=== PATIENT | male | born 1960 | race Caucasian/White ===

== ENCOUNTER 2019-12-12 08:00 | Outpatient (RCR) | payer OTHER ==
--- NOTE | 2019-11-14 10:30 | NUR ---
Patient in the [place]. according to the patient, PICC was placed at [facility]. PICC intact right upper arm with sterile dressing change done with insertion site cleansed with chloraprep x 1, chlorhexidine impregnated disk applied, skin prep, stat lock, and tegaderm applied. dressing was dated 11/10/2019 with no chlorhexidine impregnated disk. no signs or symptoms of IV complications noted. no concerns voiced. re-wrapped with tabby to protect catheter.
[2019-11-14 10:51] VITALS: BP 125/74; PULSE 87; TEMP 97.7
[2019-11-14 11:29] LABS: MEAN CELL VOLUME 93 fl (80.0-100.0); MEAN CORPUSCULAR HGB CONC 31 g/dl (33.0-37.0); PLATELET COUNT 250 K/mm3 (130-400); RED BLOOD COUNT 3.04 M/mm3 (4.20-5.60); REDCELL DISTRIBUTION WIDTH-CV 18.7 % (11.5-14.5)
[2019-11-14 11:30] LABS: HEMATOCRIT 28.3 % (42.0-52.0); HEMOGLOBIN 8.7 g/dl (13.5-18.0); MEAN CORPUSCULAR HEMOGLOBIN 29 pg (27.0-31.0)
[2019-11-14 11:52] LABS: ALBUMIN 2.8 gm/dL (3.5-5.0); BILIRUBIN,TOTAL 0.8 mg/dL (0.0-1.0); C-REACTIVE PROTEIN 4.1 mg/dL (0.0-0.9); CALCIUM 8.2 mg/dL (8.4-10.2); CREATININE, serum 1.01 (0.66-1.25); POTASSIUM 3.9 mmol/L (3.4-5.0); TOTAL PROTEIN 6.2 gm/dL (6.4-8.2)
[2019-11-15 09:57] VITALS: BP 126/73; PULSE 88; TEMP 97.9
[2019-11-16 08:18] VITALS: BP 115/72; PULSE 86; TEMP 97.4
[2019-11-17 08:24] VITALS: BP 117/68; PULSE 82; TEMP 97.9
[2019-11-18 08:17] VITALS: BP 121/80; PULSE 83; TEMP 98
[2019-11-19 08:23] VITALS: BP 120/74; PULSE 81; TEMP 97.4
[2019-11-20 08:09] VITALS: BP 123/81; PULSE 81; TEMP 98.4
[2019-11-20 08:21] LABS: MEAN CELL VOLUME 93 fl (80.0-100.0); MEAN CORPUSCULAR HGB CONC 30 g/dl (33.0-37.0); MEAN PLATELET VOLUME 8.2 fl (7.4-10.4); PLATELET COUNT 233 K/mm3 (130-400)
[2019-11-20 08:23] LABS: HEMATOCRIT 29.7 % (42.0-52.0); MEAN CORPUSCULAR HEMOGLOBIN 28 pg (27.0-31.0)
[2019-11-20 08:34] LABS: BILIRUBIN,TOTAL 0.6 mg/dL (0.0-1.0); C-REACTIVE PROTEIN 4.4 mg/dL (0.0-0.9); CALCIUM 8.1 mg/dL (8.4-10.2); CREATININE, serum 0.9 (0.66-1.25); TOTAL PROTEIN 6.5 gm/dL (6.4-8.2)
[2019-11-21 08:12] VITALS: BP 112/70; PULSE 73; TEMP 97.4
--- NOTE | 2019-11-21 08:20 | NUR ---
PICC intact right upper arm with sterile dressing change done with insertion site cleansed with chloraprep x 1, chlorhexidine impregnated disk applied, skin prep, stat lock, and tegaderm applied. no signs or symptoms of IV complications noted. no concerns voiced. to continue with cares in EU. voiced undersanding of instructions.
[2019-11-22 08:26] VITALS: BP 123/81; PULSE 80; TEMP 97.6
[2019-11-23 08:20] VITALS: BP 122/79; PULSE 78; TEMP 97.5
[2019-11-24 08:24] VITALS: BP 110/75; PULSE 75; TEMP 97.7
[2019-11-25 08:20] VITALS: BP 117/77; PULSE 74; TEMP 97.4
[2019-11-26 08:30] VITALS: BP 136/82; PULSE 75; TEMP 97.9
[2019-11-27 08:31] VITALS: BP 117/82; PULSE 81; TEMP 97.6
[2019-11-27 08:39] LABS: MEAN CELL VOLUME 90 fl (80.0-100.0); MEAN CORPUSCULAR HGB CONC 31 g/dl (33.0-37.0); MEAN PLATELET VOLUME 8.8 fl (7.4-10.4); PLATELET COUNT 301 K/mm3 (130-400); RED BLOOD COUNT 3.55 M/mm3 (4.20-5.60); REDCELL DISTRIBUTION WIDTH-CV 17.4 % (11.5-14.5)
[2019-11-27 08:41] LABS: HEMATOCRIT 31.8 % (42.0-52.0); HEMOGLOBIN 9.7 g/dl (13.5-18.0); MEAN CORPUSCULAR HEMOGLOBIN 27 pg (27.0-31.0)
[2019-11-27 08:43] LABS: ALBUMIN 3.3 gm/dL (3.5-5.0); BILIRUBIN,TOTAL 0.6 mg/dL (0.0-1.0); CALCIUM 8.8 mg/dL (8.4-10.2); CREATININE, serum 0.82 (0.66-1.25); TOTAL PROTEIN 7.1 gm/dL (6.4-8.2)
[2019-11-28 08:23] VITALS: BP 122/84; PULSE 78; TEMP 97.8
--- NOTE | 2019-11-28 08:30 | NUR ---
PICC intact right upper arm. With sterile technique right upper arm PICC dressing change done with insertion site cleansed with ChloraPrep 1, chlorhexidine impregnated disc applied, skin prep, StatLock, and Tegaderm applied. No signs or symptoms of IV complications noted. No concerns voiced. Arm wrapped with Jewel to protect catheter.
[2019-11-29 08:11] VITALS: BP 124/81; PULSE 78; TEMP 97.4
[2019-11-30 08:12] VITALS: BP 131/84; PULSE 81; TEMP 97.7
[2019-12-01 08:23] VITALS: BP 111/69; PULSE 83; TEMP 98
[2019-12-02 08:50] VITALS: BP 126/84; PULSE 78; TEMP 98.3
[2019-12-03 08:10] VITALS: BP 135/91; PULSE 75; TEMP 97.4
[2019-12-04 08:15] LABS: HEMOGLOBIN 10.2 g/dl (13.5-18.0); MEAN CELL VOLUME 89 fl (80.0-100.0); MEAN CORPUSCULAR HEMOGLOBIN 28 pg (27.0-31.0); MEAN CORPUSCULAR HGB CONC 31 g/dl (33.0-37.0); MEAN PLATELET VOLUME 8.4 fl (7.4-10.4); PLATELET COUNT 396 K/mm3 (130-400); REDCELL DISTRIBUTION WIDTH-CV 17.1 % (11.5-14.5)
[2019-12-04 08:16] LABS: HEMATOCRIT 32.9 % (42.0-52.0)
[2019-12-04 08:26] VITALS: BP 132/80; PULSE 82; TEMP 97.5
[2019-12-04 08:28] LABS: ALBUMIN 3.6 gm/dL (3.5-5.0); BILIRUBIN,TOTAL 0.5 mg/dL (0.0-1.0); C-REACTIVE PROTEIN 3.7 mg/dL (0.0-0.9); CALCIUM 9.2 mg/dL (8.4-10.2); CREATININE, serum 0.81 (0.66-1.25); TOTAL PROTEIN 7.4 gm/dL (6.4-8.2)
--- NOTE | 2019-12-04 08:30 | NUR ---
PICC intact right upper arm with sterile dressing change done with insertion site cleansed with chloraprep x 1, chlorhexidine impregnated disk applied, skin prep, stat lock, and tegaderm applied. no signs or symptoms of IV complications noted. no concerns voiced. He has a doctor visit tomorrow.
--- NOTE | 2019-12-06 09:58 | NUR ---
Pt arrived for scheduled PICC line removal.Dr Neil's office called and requests to leave PICC line in place.Pt scheduled for dressing change December 10.Request given to office nurse to call me if they decide to restart iv abx.
[2019-12-06 10:04] VITALS: BP 119/83; PULSE 78; TEMP 97.1
[2019-12-07 08:09] VITALS: BP 143/98; PULSE 81; TEMP 97.6
[2019-12-08 08:06] VITALS: BP 128/84; PULSE 88; TEMP 97.5
[2019-12-09 08:15] VITALS: BP 152/94; PULSE 86; TEMP 97.4
[2019-12-10 08:22] VITALS: BP 149/94; PULSE 84; TEMP 97.8
[2019-12-11 08:29] VITALS: BP 120/83; PULSE 77; TEMP 97.7
[2019-12-11 08:38] LABS: HEMOGLOBIN 10.2 g/dl (13.5-18.0); MEAN CELL VOLUME 88 fl (80.0-100.0); MEAN CORPUSCULAR HEMOGLOBIN 27 pg (27.0-31.0); MEAN CORPUSCULAR HGB CONC 31 g/dl (33.0-37.0); MEAN PLATELET VOLUME 8.7 fl (7.4-10.4); PLATELET COUNT 351 K/mm3 (130-400); REDCELL DISTRIBUTION WIDTH-CV 17.1 % (11.5-14.5)
[2019-12-11 08:39] LABS: HEMATOCRIT 33.3 % (42.0-52.0)
[2019-12-11 08:56] LABS: ALBUMIN 3.6 gm/dL (3.5-5.0); BILIRUBIN,TOTAL 0.5 mg/dL (0.0-1.0); C-REACTIVE PROTEIN 2.9 mg/dL (0.0-0.9); CALCIUM 9.1 mg/dL (8.4-10.2); CREATININE, serum 0.87 (0.66-1.25); POTASSIUM 3.9 mmol/L (3.4-5.0); TOTAL PROTEIN 7.3 gm/dL (6.4-8.2)
[~2019-12-12] VITALS: Ht 172.7 cm; Wt 67.7 kg
[~2019-12-12 08:00] MED LIST: ASPIRIN 81M81 MG/TA2 PO; CIPRO 500MG TA500 MG PO; CUBICIN 500MG500 MG IV; DULCOLAX STOOL100 MG PO; ELIQUIS 5MG PO; FLOMAX 0.40.4 MG/CAP PO; LORTAB 5/500 501 TAB PO; NAPROSYN500 MG PO; NO HOME MEDICATIONS; PACERONE200 MG PO; PERCOCET 325 MG1 TA2 PO; PHENERGAN 25 TA25 MG PO; SENNA-LAX8.6 MG PO; ULTRAM 50MG TAB50 MG PO; UROXATRAL10 M1 PO; ZOFRAN 4MG T4 MG/TAB PO; ZYLOPRIM 300MG300 MG PO
[2019-12-12 08:10] VITALS: BP 130/89; PULSE 87; TEMP 98.4
--- NOTE | 2019-12-13 09:10 | NUR ---
Pt did not show for appt. Called and he had fallen at home and is currently in [place] in the hospital waiting to be [facility]. He will keep us updated as to his return
== END 2019-12-14 10:16 | disposition short-term general hospital (02) ==
LOC: EUO 08:00
PROVIDERS: Hospitalist; Internal Medicine Infectious Disease
DX: M46.26 Osteomyelitis of vertebra, lumbar region (principal); M46.46 Discitis, unspecified, lumbar region; I35.1 Nonrheumatic aortic (valve) insufficiency; Q21.1 Atrial septal defect; Z79.899 Other long term (current) drug therapy
CPT/HCPCS: J0696; J0878

== ENCOUNTER 2019-12-12 14:11 | Emergency (ER) | payer OTHER ==
[~2019-12-12] VITALS: Ht 172.7 cm; Wt 66.8 kg
[2019-12-12 14:13] VITALS: TEMP 98
[2019-12-12 15:30] LABS: BASO # 0.1 (0.0-0.2); BASO % 0.8 % (0.0-2.0); EOS % 0.6 % (0-4.0); GRAN # 4.2 (1.4-6.5); GRAN % 65.8 % (42.2-75.2); LYMPH # 1.6 (1.2-3.4); LYMPH % 24.2 % (20.0-51.0); MEAN CELL VOLUME 87 fl (80.0-100.0); MEAN CORPUSCULAR HGB CONC 31 g/dl (33.0-37.0); MEAN PLATELET VOLUME 9.1 fl (7.4-10.4); MONO # 0.5 (0.1-0.6); MONO % 8.3 % (1.7-9.3); PLATELET COUNT 307 K/mm3 (130-400); RED BLOOD COUNT 3.53 M/mm3 (4.20-5.60); REDCELL DISTRIBUTION WIDTH-CV 17.2 % (11.5-14.5)
[2019-12-12 15:34] LABS: HEMATOCRIT 30.8 % (42.0-52.0); HEMOGLOBIN 9.5 g/dl (13.5-18.0); MEAN CORPUSCULAR HEMOGLOBIN 27 pg (27.0-31.0)
[2019-12-12 15:50] LABS: ALBUMIN 3.6 gm/dL (3.5-5.0); BILIRUBIN,TOTAL 0.5 mg/dL (0.0-1.0); C-REACTIVE PROTEIN 2.8 mg/dL (0.0-0.9); CALCIUM 8.9 mg/dL (8.4-10.2); CREATININE, serum 0.74 (0.66-1.25); TOTAL PROTEIN 7.2 gm/dL (6.4-8.2)
[2019-12-12 15:59] LABS: TROPONIN-I 0.017 ng/mL (0.000-0.035)
[2019-12-12 20:23] VITALS: BP 141/97; PULSE 87
== END 2019-12-12 20:22 | disposition short-term general hospital (02) ==
LOC: COL.ER 14:11
PROVIDERS: Emergency Medicine
DX: I95.1 Orthostatic hypotension (principal); M54.5 Low back pain; Z79.82 Long term (current) use of aspirin; Z95.4 Presence of other heart-valve replacement
CPT/HCPCS: J2270; J7030

== ENCOUNTER 2019-12-25 12:56 | Outpatient (RCR) | payer OTHER ==
[~2019-12-25 12:56] MED LIST changes: +CLARITIN 1010 MG/TAB PO; +FERROUSAL325 MG PO; +NEURONTIN100 MG/CAP PO; +NORCO 325 MG-101 TAB PO
[2020-01-18] MEDS ORDERED: TOPROL XL 25MG25 MG PO (07:59)
== END 2020-02-13 | disposition home or self-care (01) ==
LOC: COL.CR
DX: Z48.812 Encounter for surgical aftercare following surgery on the circulatory system (principal); I35.8 Other nonrheumatic aortic valve disorders; I35.1 Nonrheumatic aortic (valve) insufficiency

== ENCOUNTER 2020-01-22 08:00 | Outpatient (RCR) | payer OTHER ==
[2020-01-06 08:11] VITALS: BP 120/81; PULSE 87; TEMP 97.3
[2020-01-07 08:05] VITALS: BP 124/70; PULSE 77; TEMP 97.5
[2020-01-08 08:19] VITALS: BP 110/65; PULSE 87; TEMP 98.4
[2020-01-08 09:11] LABS: MEAN CELL VOLUME 87 fl (80.0-100.0); MEAN CORPUSCULAR HGB CONC 31 g/dl (33.0-37.0); MEAN PLATELET VOLUME 9.3 fl (7.4-10.4); PLATELET COUNT 277 K/mm3 (130-400); RED BLOOD COUNT 3.31 M/mm3 (4.20-5.60); REDCELL DISTRIBUTION WIDTH-CV 17.2 % (11.5-14.5)
[2020-01-08 09:12] LABS: HEMATOCRIT 28.7 % (42.0-52.0); HEMOGLOBIN 8.9 g/dl (13.5-18.0); MEAN CORPUSCULAR HEMOGLOBIN 27 pg (27.0-31.0)
[2020-01-08 09:28] LABS: ALBUMIN 3.3 gm/dL (3.5-5.0); BILIRUBIN,TOTAL 0.3 mg/dL (0.0-1.0); C-REACTIVE PROTEIN 6.6 mg/dL (0.0-0.9); CREATININE, serum 0.71 (0.66-1.25); POTASSIUM 3.7 mmol/L (3.4-5.0); TOTAL PROTEIN 6.5 gm/dL (6.4-8.2)
--- NOTE | 2020-01-09 08:00 | NUR ---
PICC intact right upper arm. With sterile technique right upper arm PICC dressing change done with insertion site cleansed with ChloraPrep 1, chlorhexidine impregnated disc applied, skin prep, StatLock, and Tegaderm applied. No signs or symptoms of IV complications noted. No concerns voiced.
[2020-01-09 08:28] VITALS: BP 128/84; PULSE 75; TEMP 98
[2020-01-10 08:13] VITALS: BP 114/74; PULSE 77; TEMP 97.8
[2020-01-11 08:14] VITALS: BP 117/81; PULSE 79; TEMP 97.6
[2020-01-12 08:00] VITALS: BP 125/82; PULSE 87; TEMP 97.7
[2020-01-13 08:00] VITALS: BP 121/77; PULSE 80; TEMP 97.4
[2020-01-14 08:00] VITALS: BP 116/74; PULSE 86; TEMP 97.8
[2020-01-15 08:26] VITALS: BP 125/76; PULSE 79; TEMP 97.5
[2020-01-15 08:45] LABS: MEAN CELL VOLUME 86 fl (80.0-100.0); MEAN CORPUSCULAR HGB CONC 31 g/dl (33.0-37.0); MEAN PLATELET VOLUME 8.8 fl (7.4-10.4); PLATELET COUNT 353 K/mm3 (130-400)
[2020-01-15 08:49] LABS: HEMOGLOBIN 9.6 g/dl (13.5-18.0); MEAN CORPUSCULAR HEMOGLOBIN 27 pg (27.0-31.0)
[2020-01-15 08:58] LABS: ALBUMIN 3.6 gm/dL (3.5-5.0); BILIRUBIN,TOTAL 0.4 mg/dL (0.0-1.0); C-REACTIVE PROTEIN 2.4 mg/dL (0.0-0.9); CALCIUM 8.9 mg/dL (8.4-10.2); CREATININE, serum 0.71 (0.66-1.25); POTASSIUM 3.9 mmol/L (3.4-5.0); TOTAL PROTEIN 6.9 gm/dL (6.4-8.2)
--- NOTE | 2020-01-16 08:00 | NUR ---
PICC intact right upper arm with sterile dressing change done with insertion site cleansed with chloraprep x 1, chlorhexidine impregnated disk applied, skin prep, stat lock, and tegaderm applied. no signs or symptoms of IV complications noted. no concerns voiced. will continue to monitor.
[2020-01-16 08:09] VITALS: BP 129/84; PULSE 77; TEMP 97.8
[2020-01-17 08:15] VITALS: BP 124/81; PULSE 84; TEMP 97.8
[2020-01-18 08:10] VITALS: BP 144/90; PULSE 84; TEMP 97.8
[2020-01-19 08:20] VITALS: BP 115/83; PULSE 80; TEMP 97.7
[2020-01-20 08:14] VITALS: BP 124/80; PULSE 94; TEMP 98.4
[2020-01-21 08:00] VITALS: BP 112/73; PULSE 80; TEMP 98.1
[~2020-01-22] VITALS: Ht 172.7 cm; Wt 68.4 kg
[~2020-01-22 08:00] MED LIST changes: +TOPROL XL 25MG25 MG PO
[2020-01-22 08:33] LABS: HEMOGLOBIN 10.4 g/dl (13.5-18.0); MEAN CELL VOLUME 86 fl (80.0-100.0); MEAN CORPUSCULAR HEMOGLOBIN 26 pg (27.0-31.0); MEAN CORPUSCULAR HGB CONC 31 g/dl (33.0-37.0); MEAN PLATELET VOLUME 9.1 fl (7.4-10.4); PLATELET COUNT 298 K/mm3 (130-400); RED BLOOD COUNT 3.94 M/mm3 (4.20-5.60)
[2020-01-22 08:35] VITALS: BP 135/91; PULSE 88; TEMP 97.9
[2020-01-22 08:35] LABS: HEMATOCRIT 33.7 % (42.0-52.0)
[2020-01-22 08:48] LABS: ALBUMIN 3.7 gm/dL (3.5-5.0); BILIRUBIN,TOTAL 0.4 mg/dL (0.0-1.0); C-REACTIVE PROTEIN 1.1 mg/dL (0.0-0.9); CALCIUM 9.2 mg/dL (8.4-10.2); CREATININE, serum 0.8 (0.66-1.25); TOTAL PROTEIN 7.2 gm/dL (6.4-8.2)
== END 2020-01-22 08:50 | disposition home or self-care (01) ==
LOC: EUO 08:00
PROVIDERS: Internal Medicine Infectious Disease
DX: M46.46 Discitis, unspecified, lumbar region (principal)
CPT/HCPCS: J0878

== ENCOUNTER 2020-11-21 22:27 | Observation (INO) | payer OTHER ==
[~2020-11-21] VITALS: Ht 172.7 cm; Wt 77.3 kg
[2020-11-22] VITALS (16 sets, daily range): BP systolic 112–143; BP diastolic 67–86; PULSE 69–77; TEMP 97–98.1
[2020-11-22 01:07] LABS: BASO % 0.4 % (0.0-2.0); EOS % 0.4 % (0-4.0); GRAN # 5.5 (1.4-6.5); GRAN % 76.3 % (42.2-75.2); HEMATOCRIT 40.5 % (42.0-52.0); HEMOGLOBIN 13.5 g/dl (13.5-18.0); LYMPH # 1.2 (1.2-3.4); MEAN CELL VOLUME 90 fl (80.0-100.0); MEAN CORPUSCULAR HEMOGLOBIN 30 pg (27.0-31.0); MEAN CORPUSCULAR HGB CONC 33 g/dl (33.0-37.0); MEAN PLATELET VOLUME 9.7 fl (7.4-10.4); MONO # 0.5 (0.1-0.6); MONO % 6.5 % (1.7-9.3); PLATELET COUNT 177 K/mm3 (130-400); REDCELL DISTRIBUTION WIDTH-CV 14.7 % (11.5-14.5)
[2020-11-22 01:21] LABS: ALBUMIN 4.4 gm/dL (3.5-5.0); BILIRUBIN,TOTAL 0.6 mg/dL (0.0-1.0); CALCIUM 8.9 mg/dL (8.4-10.2); CREATININE, serum 0.93 (0.66-1.25); POTASSIUM 4.1 mmol/L (3.4-5.0); TOTAL PROTEIN 7.5 gm/dL (6.4-8.2)
--- NOTE | 2020-11-22 01:45 | NUR ---
ADMITTED TO ROOM 330 FROM ER. WALKING ABOUT IN ROOM. PAIN 2/10 WHILE STILL. O2 PER OXYMASK 10L. SAT 97% ON RA. PAIN RT THORACIC. DOES NOT HURT TO TAKE DEEP BREATH. INTRODUCED TO ROOM, NURSE ETC.
--- NOTE | 2020-11-22 02:55 | NUR ---
PT RESTING COMFOTABLY AT THIS TIME WITH OCCASIONAL EPISODE OF BACK SPASMS. LASTING ONLY SECONDS. MOLASSES PREPARER DIAUDID STARTED. PT INSTRUCTED ON IT'S USE AND SAFETY. ETO2 CANNULA. O2 DROPPED TO 89-90%. RESTARTED 02 5L OXYMASK PT HAD TAKEN IT OFF. O2 BACK UP TO 96-97%. NO DYSPNEA OR DISTRESS. CALL LIGHT IN REACH. PT INSTRUCTED TO CALL FOR ASSIST TO USE URINAL. PT AGREED.
[2020-11-22] MEDS ORDERED: DOXYCYCLINE 10100 MG PO (03:39)
--- NOTE | 2020-11-22 03:56 | NUR ---
PT GETTING GOOD PAIN RELIEF WITH MAKE UP EDITOR.
[2020-11-22 07:04] LABS: HEMOGLOBIN 12.5 g/dl (13.5-18.0)
--- NOTE | 2020-11-22 10:13 | NUR ---
PATIENTS SHIFT ASSESSMENT COMPLETED AT THIS TIME. MORNING MEDICATIONS ADMINISTERED BY STUDENT NURSE. ASSISTANT PRODUCTION EDITOR IN PLACE. CALL LIGHT WITHIN REACH. WILL CONTINUE TO MONITOR.
--- NOTE | 2020-11-22 11:49 | NUR ---
SW met with the patient to discuss discharge plan. The patient lives in [place] with his , Liza (ph#[phone]). He reports independence with ADLs and has a walker. The patient's PCP is Dr. Proctor on [address] and he receives his medications on [address] and [facility]. He reports no difficulties obtaining his meds. The patient dos not have a DPOA-HC and he was not interested in completing one at this time. He states that he already has the paperwork at home for it. The patient plans to return home with his upon discharge. No additional needs at this time.
--- NOTE | 2020-11-22 18:30 | NUR ---
PATIENT CALLED OUT DUE TO COMPUTER NUMERICAL CONTROL OPERATOR GOING OFF. UPON ENTRY TO THE ROOM THE PATIENT REPORTS THAT HE HAD BEEN EATING HIS DINNER AND REMOVED THE CO2 MONITOR. PRESENT AT THE BEDSIDE. CO2 MONITOR RESET. CALL LIGHT WITHIN REACH. PATIENT DENIES ANY NEEDS AT THIS TIME. WILL REPORT OFF TO ONCOMING NURSE.
--- NOTE | 2020-11-22 19:18 | NUR ---
AWAKE, WATCHING TV. DENIES ANY NEEDS AT THIS TIME. REPORT RECEIVED FROM DAY SHIFT NURST.
--- NOTE | 2020-11-22 20:15 | NUR ---
SHIFT ASSESSMENT COMPLETE. PT UP IN ROOM. SPILLED WATER SO BED LINEN WAS BEING CHANGED. TOLERATES STANDING UP AND MOVING AROUND IN ROOM. RESOURCE MANAGEMENT SPECIALIST TOTAL USED IS AT 14.0MG. REFUSES SCD'S. PULLS IS TO 3500ML. 02 ON AT 6L/NC. CALL LIGHT IN REACH.
[2020-11-23] VITALS (7 sets, daily range): BP systolic 101–128; BP diastolic 60–70; PULSE 70–80; TEMP 97.6–98.2
--- NOTE | 2020-11-23 07:20 | NUR ---
REPORTS THAT HE HAD SEVERAL BACK SPASMS DURING THE NIGHT. USES ASSOCIATE PROFESSOR OF THEOLOGY FOR CONTROL OF PAIN. STATES HE CAN GET HIS PAIN TO A 2. CONTINUES ON 6L O2 PER OXYMASK. CALL LIGHT WITHIN REACH.
--- NOTE | 2020-11-23 08:40 | NUR ---
Patient in bed eating breakfast. Alert and oriented x 3. Assessment complete. SYSTEMS SUPPORT SPECIALIST infusing per orders, states pain comes and goes to "back from rib fractures". Patient denies further needs at this time.
--- NOTE | 2020-11-23 11:06 | NUR ---
PORTER SAMPLE CASE discontinued per orders. Educated patient on calling for pain medications.
--- NOTE | 2020-11-23 12:30 | NUR ---
Patient refused lunch, states he had a big breakfast. States pain "tolerable" since discontinuing ENGINEER AUTOMATED EQUIPMENT. No further needs at this time
--- NOTE | 2020-11-23 18:38 | NUR ---
Patient doing well today. Has been up independently in room with steady gait. States mild pain with movement but refuses need for additional pain meds. Showered this afternoon. Denies further needs at this time. Will report off to night clerk.
--- NOTE | 2020-11-23 19:24 | NUR ---
PT RESTING IN BED WITH SPOUSE AT BEDSIDE. C/O PAIN. REQUEST MED FOR HIS RIB PAIN. O2 ON AT 6L/OXYMASK. CALL LIGHT IN REACH.
[2020-11-24 03:37] VITALS: BP 137/76; PULSE 70; TEMP 98.1
[2020-11-24 08:24] VITALS: BP 150/85; PULSE 76; TEMP 97.7
--- NOTE | 2020-11-24 09:16 | NUR ---
Patient alert and oriented, answers questions appropriately. See assessment. Lungs CTA, IS encouraged. C/o right lower back pain. Encouraged ambulation and increased activity. No other c/o at this time.
[2020-11-24] MEDS ORDERED: PERCOCET 325 MG1 TA3 PO (09:48)
--- NOTE | 2020-11-24 12:56 | NUR ---
Discharge instructions reviewed with patient, verbalized understanding. Discharged ambulatory to auto/home with spouse at 1250.
== END 2020-11-24 12:50 | disposition home or self-care (01) ==
LOC: COL.ER 22:27 → JCC 11-22 01:05
PROVIDERS: Emergency Medicine; ADMIT Surgery
DX: S22.31XA Fracture of one rib, right side, initial encounter for closed fracture (principal); Z98.52 Vasectomy status; Z95.2 Presence of prosthetic heart valve; Z79.82 Long term (current) use of aspirin
CPT/HCPCS: A9284; G0378; J1170; J3010; J7070